=== PATIENT | female | born 1990 | race Caucasian/White ===

== ENCOUNTER 2017-01-11 07:25 | Inpatient (IN) | payer OTHER ==
[~2017-01-11] VITALS: Ht 152.4 cm; Wt 70.8 kg
[~2017-01-11 07:25] MED LIST: MOTRIN800 MG PO; PRENATAL VITAMI1 T10 PO
[2017-01-11] MEDS ORDERED: LACTATED RINGERS 1,000 ML IV SCH (07:50)
--- NOTE | 2017-01-11 08:24 | NUR ---
PATIENT HAS BEEN SCREENED AND CATEGORIZED LOW NUTRITION RISK. PATIENT WILL BE SEEN WITHIN 7 DAYS OF ADMISSION. 01/17/[address]
[2017-01-11] MEDS ORDERED: DEXAMETHASONE 4 MG/ML VIAL IVP ONE (11:00)
[2017-01-11] MEDS ORDERED: ONDANSETRON 4 MG/2 ML VIAL IVP ONE (11:00)
[2017-01-11] MEDS ORDERED: MORPHINE PRES FREE 10 MG/10 ML AMP IV ONE (11:07)
[2017-01-11] MEDS ORDERED: MIDAZOLAM 2 MG/2 ML VIAL ONE (11:07)
[2017-01-11] MEDS ORDERED: ceFAZolin 1,000 MG VIAL ONE (11:16)
[2017-01-11] MEDS ORDERED: OXYTOCIN 20 UNITS/LR PREMIX 1,000 ML IV SCH (11:53)
[2017-01-11] MEDS ORDERED: ONDANSETRON 4 MG/2 ML VIAL IVP PRN ×2 (11:55)
[2017-01-11] MEDS ORDERED: diphenhydrAMINE 50 MG/ML VIAL IVP PRN ×2 (11:55)
[2017-01-11] MEDS ORDERED: MEPERIDINE 25 MG/ML SYR IVP PRN (11:55)
[2017-01-11] MEDS ORDERED: NALBUPHINE 10 MG/ML AMP IVP PRN (11:55)
[2017-01-11] MEDS ORDERED: NALOXONE 0.4 MG/ML VIAL IVP PRN ×3 (11:55)
[2017-01-11] MEDS ORDERED: HYDROmorphone 1 MG/ML AMP IVP PRN ×2 (11:55→14:00)
[2017-01-11] MEDS ORDERED: MEASLES, MUMPS, AND RUBELLA 1 VIAL SQVAC PRN (14:00)
[2017-01-11] MEDS ORDERED: OXYTOCIN 20 UNITS/LR PREMIX 1,000 ML IV ONE (14:02)
[2017-01-11] MEDS: KETOROLAC 30 MG/ML VIAL IM/IVP SCH (18:56)
[2017-01-11] MEDS: OXYTOCIN 20 UNITS/LR PREMIX 1,000 ML IV SCH (19:19)
[2017-01-12] MEDS: KETOROLAC 30 MG/ML VIAL IM/IVP SCH ×4 (01:51→21:18)
[2017-01-12] MEDS: OXYTOCIN 20 UNITS/LR PREMIX 1,000 ML IV SCH (08:45)
[2017-01-12] MEDS ORDERED: INFLUENZA VIRUS VACCINE QUAD 0.5 ML SYR IMVAC SCH (19:00)
[2017-01-12] MEDS: KETOROLAC 30 MG/ML VIAL IVP PRN (21:19)
[2017-01-13] MEDS: IBUPROFEN 600 MG TAB PO PRN ×2 (01:03→06:21)
[2017-01-13] MEDS: KETOROLAC 30 MG/ML VIAL IVP PRN (05:21)
[2017-01-13] MEDS ORDERED: SIMETHICONE 80 MG TAB.CHEW PO PRN (08:00)
[2017-01-13] MEDS ORDERED: SODIUM PHOSPHATE 118 ML ENEM RC PRN (08:00)
[2017-01-13] MEDS: BISACODYL 5 MG TABEC PO PRN (08:16)
[2017-01-13] MEDS: DOCUSATE SODIUM 100 MG GELCAP PO PRN (08:17)
[2017-01-13] MEDS: oxyCODONE/APAP 5/325 MG 1 TAB TAB PO PRN ×2 (10:53→18:18)
[2017-01-14] MEDS: oxyCODONE/APAP 5/325 MG 1 TAB TAB PO PRN ×2 (00:45→17:45)
[2017-01-14] MEDS: DOCUSATE SODIUM 100 MG GELCAP PO PRN (19:59)
[2017-01-14] MEDS: IBUPROFEN 600 MG TAB PO PRN (19:59)
[2017-01-14] MEDS: BISACODYL 5 MG TABEC PO PRN (19:59)
[2017-01-15] MEDS: oxyCODONE/APAP 5/325 MG 1 TAB TAB PO PRN (01:51)
[2017-01-15] MEDS: IBUPROFEN 600 MG TAB PO PRN ×3 (03:03→17:35)
== END 2017-01-15 19:15 | disposition home or self-care (01) | DRG 540 ==
LOC: MLD 07:25 → MFCC 11:10
PROVIDERS: ADMIT Obstetrics & Gynecology; ATTEND Obstetrics & Gynecology
PROC: 10D00Z1 Extraction of Products of Conception, Low, Open Approach (ICD-10-PCS; principal; 2017-01-14)
PROC: 0UB70ZZ Excision of Bilateral Fallopian Tubes, Open Approach (ICD-10-PCS; 2017-01-14)
DX: O34.211 Maternal care for low transverse scar from previous cesarean delivery (principal); N73.6 Female pelvic peritoneal adhesions (postinfective); Z37.0 Single live birth; Z3A.38 38 weeks gestation of pregnancy; O99.89 Other specified diseases and conditions complicating pregnancy, childbirth and the puerperium